=== PATIENT | male | born 2000 | race Caucasian/White ===

== ENCOUNTER 2025-09-06 12:24 | Emergency (ER) | payer OTHER ==
[~2025-09-06] VITALS: Ht 182.9 cm; Wt 83.9 kg
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
[2025-09-06 14:45] VITALS: BP 135/87; PULSE 80; RESP 16; TEMP 97.9; O2SAT 100
== END 2025-09-06 14:46 | disposition home or self-care (01) ==
LOC: EDH 12:24
DX: T59.811A Toxic effect of smoke, accidental (unintentional), initial encounter (principal); T14.90XA Injury, unspecified, initial encounter; Y92.89 Other specified places as the place of occurrence of the external cause
CPT/HCPCS: 36415; 82375; 99283